=== PATIENT | male | born 1980 | race Caucasian/White ===

== ENCOUNTER → 2020-04-29 14:53 | Outpatient (BNVA) | payer OTHER, SELFPAY | PROVIDERS: Family Provider Urology; PCP Urology; Visit Provider Family Medicine | DX: Z11.59 Encounter for screening for other viral diseases (principal) | CPT/HCPCS: 87635 ==

== ENCOUNTER 2020-12-01 14:46 | Outpatient (CLI) | payer OTHER, SELFPAY ==
--- NOTE | 2020-12-01 14:55 | US_ITS ---
WS: [id number] ULTRASOUND SOFT TISSUES RIGHT lower extremity. HISTORY: MASS ON R LOWER LEG COMPARISON: None available. TECHNIQUE: 2-D and color Doppler imaging is submitted. Ultrasound is directed to the area on the RIGHT lower extremity. There is a lobulated soft tissue mas s which is similar echogenicity as the adjacent muscle. Nodule measures 1.5 x 0.6 cm. There is no inc reased vascularity. This does not appear to be a thrombosed vein. This could be herniation of muscle through a defect in the fascia. Very nonspecific by ultrasound. US/US soft tissue/extremity [id number] IMPRESSION: Nonspecific superficial soft tissue nodule in the RIGHT lower extremity. This i s not a thrombosed vein. Potentially could be herniated muscle through a fascia l defect. For further evaluation consider MRI.
== END 2020-12-01 14:47 | disposition home or self-care (01) ==
LOC: RAD 14:52
PROVIDERS: PCP Family Medicine; Visit Provider Family Medicine
DX: R22.41 Localized swelling, mass and lump, right lower limb (principal); E04.1 Nontoxic single thyroid nodule
CPT/HCPCS: 76882

== ENCOUNTER 2021-01-11 10:47 | Outpatient (CLI) | payer OTHER, SELFPAY ==
--- NOTE | 2021-01-11 10:58 | MR_ITS ---
WS: [id number] INDICATION: Leg mass TECHNIQUE: MRI of the right lower leg without and with gadolinium enhancement. Coronal STIR, coronal T1, sagittal STIR, sagittal T1, axial T2, axial PD, and post gadolinium imaging was obtained with fat saturated technique. COMPARISON: Ultrasound December 01, 2020 FINDINGS: Comparison recent ultrasound. Normal bone marrow signal in the right tibia and fibula. No a cute fractures. No abnormal gadolinium enhancement. No evidence of drainable abscess or fluid collect ion. No evidence of osteomyelitis. Area of palpable concern with marker in the posterior lateral calf. Tiny amount of serpiginous T2 sig nal deep to the palpable marker with gadolinium enhancement most likely represents a soft tissue benny ngioma with small feeding vessels. This corresponds to the soft tissue lesion seen on the ultrasound. This area measures 1.5 cm. No other suspicious underlying subcutaneous or intramuscular abnormalitie s. No other significant findings. MR/MR lower leg RT wo/w con [id number] IMPRESSION: 1. In the area of palpable concern, there is a small serpiginous T2 hyperinten se lesion likely soft tissue hemangioma measure 1.5 cm. This has a nonaggressiv e appearance. 2. No drainable abscess or fluid collection. 3. No other abnormalities.
[2021-01-11] MEDS: gadobenate dimeglumine 20 mL vial IV (12:00)
== END 2021-01-11 10:48 | disposition home or self-care (01) ==
LOC: RADWPI 10:50
PROVIDERS: PCP Family Medicine; Visit Provider Family Medicine
DX: R22.41 Localized swelling, mass and lump, right lower limb (principal)
CPT/HCPCS: 73720; A9577

== ENCOUNTER 2021-02-01 08:29 | Emergency (ER) | payer OTHER, SELFPAY ==
--- NOTE | 2021-02-01 | CTR_ITS ---
[facility] Final Radiology Report Call: [phone] assistance Online chat: [email or web address] Name: WILLIE LONGO Age: 40Years M Date: 02/01/2021 SSN: -- : [id number] Study: CT ABDOMEN/PELVIS W Requesting Physician: Gloria Mitchell Images: 230 Add?l Studies: Provided Clinical History: Procedure Accession CTDI Vol (mGy) DLP (mGy-cm) CT ABDOMEN/PELVIS W [id number] 1207.83 PROCEDURE INFORMATION: Exam: CT Abdomen And Pelvis With Contrast Exam date and time: 02/01/2021 1:39 PM Age: 40 years old Clinical indication: Abdominal pain; Patient HX: Constipation x 1 week TECHNIQUE: Imaging protocol: Computed tomography of the abdomen and pelvis with contrast. Radiation optimization: All CT scans at this facility use at least one of these dose optimization techniques: automated exposure control; mA and/or kV adjustment per patient size (includes targeted exams where dose is matched to clinical indication); or iterative reconstruction. Contrast material: OMNI 300; Contrast volume: 95 ml; Contrast route: INTRAVENOUS (IV); COMPARISON: US soft tissue/extremity [id number] 12/01/2020 3:14 PM RADIATION DOSE METRICS: Total DLP (mGy-cm): 1207.83 FINDINGS: Liver: No mass. Gallbladder and bile ducts: Unremarkable. No ductal dilation. Pancreas: Normal. No ductal dilation. Spleen: Normal. No splenomegaly. Adrenal glands: Normal. No mass. Kidneys and ureters: Normal. No hydronephrosis. Stomach and bowel: No acute findings. No obstruction. No mucosal thickening. Moderate fecal material throughout the colon. Appendix: No evidence of appendicitis. Intraperitoneal space: Unremarkable. No free air. No significant fluid collection. Vasculature: No abdominal aortic aneurysm. Lymph nodes: No significant adenopathy. Urinary bladder: Unremarkable as visualized. Reproductive: Unremarkable as visualized. Bones/joints: No acute findings. Soft tissues: Unremarkable. IMPRESSION: No acute findings. Findings consistent with constipation. Thank you for allowing us to participate in the care of your patient. Dictated and Authenticated by: Jarrell Montez MD 02/01/2021 2:42 PM Central Time ([place] & [place]) [facility]
[2021-02-01 09:04] VITALS: BP 114/80; PULSE 82; RESP 16; TEMP 36.6; O2SAT 96; BMI 27.1
--- NOTE | 2021-02-01 12:08 | PC.NURSE ---
Patient arrived to room at 12:08 and assumed care at that time.
[2021-02-01 12:09] VITALS: BP 128/99; PULSE 65; RESP 18; TEMP 36.6; O2SAT 99
--- NOTE | 2021-02-01 12:26 | W.ED.GENADLT ---
HPI - General Adult General: Chief complaint: General Medical Stated complaint: Bowel problems Time Seen by Provider: 02/01/21 11:11 Source: patient Mode of arrival: ambulatory Limitations: no limitations History of Present Illness: HPI narrative: 40-year-old male patient presents to the emergency department with constipation over the last 7 days. Patient states he has taken qlvh-hol-wkhqiup medicines without relief. Patient patient states he called his primary care physician and they sent him over here for possible bowel obstruction. Patient does complain of some nausea. Patient denies any fever. Patient denies any back pain. Patient states he is otherwise healthy. Associated symptoms: Reports nausea; Deny chest pain, confusion, diaphoresis, dyspnea, headache(s), malaise, rash, palpitations, syncope or vomiting Review of Systems Const: Denies: fever(s), chills, body aches, change in appetite, change in weight, fatigue, malaise or diaphoresis Eyes: Denies: change in vision, blurry vision, blind spots, photophobia, eye discomfort, eye discharge, eye redness, floaters or seeing flashes ENMT: Denies: throat pain, uvular edema, enlarged tonsils, odynophagia, hoarseness, mouth pain, swelling of lips/tongue, oral sores, bleeding gums, dental pain, dry mouth, ear or mastoid pain, ear discharge, change in hearing, tinnitus, disequilibrium, nasal discharge, nasal congestion, post nasal drip or sinus pain Card: Denies: chest pain, palpitations, irregular heart rhythm, edema, swelling of feet/ankles, lightheadedness, syncope, pre-syncope, dyspnea on exertion, orthopnea, leg pain with exertion or acrocyanosis Resp: Denies: dyspnea, productive cough, non-productive cough, wheezing, stridor, pain on inspiration, change in phlegm color, hemoptysis or chest congestion GI: Reports: abdominal pain, nausea and constipation; Denies: vomiting, hematemesis, dysphagia, diarrhea, GI cramping, change in bowel habits or rectal pain : Denies: flank pain, dysuria, urinary frequency, urinary urgency, urinary hesitancy or hematuria Musc: Denies: neck pain, back pain, extremity pain, extremity swelling, joint pain, joint swelling, joint redness, joint warmth or deformity Skin/Breast: Denies: rash, pruritus, erythema, sores, new lesions, changes in skin color or dry skin Neuro: Denies: headache(s), numbness in extremities, weakness in extremities, sensory changes, lack of coordination, difficulty walking, frequent falls, dizziness, vertigo, confusion, behavioral changes, Slurred speech present, difficulty communicating thoughts or seizure-like activity Psych: Denies: anxiety, depression, suicidal ideation or homicidal ideation Endo: Denies: polyuria, polydipsia, tired all the time, cold intolerance, excessive sweating, flushing, hot flashes or heat intolerance Alessandro/Lymph: Denies: easy bruising, easy bleeding, petechiae, purpura, enlarged lymph nodes or tender lymph nodes All/Imm: Denies: urticaria, throat swelling, tongue swelling, facial swelling, acute wheezing or itchy eyes PFSH ED PFSH: Social History Smoking and tobacco status: never smoked Physical Exam Const: COMMON NORMALS: no acute distress, average body habitus, patient oriented x3, no limitations, healthy appearing, alert and well nourished HENMT: THROAT: no uvular edema Resp: COMMON NORMALS: normal respiratory effort, No retractions, No use of accessory muscles, clear to auscultation bilaterally and percussion normal AUSCULTATION: clear to auscultation bilaterally PERCUSSION: percussion normal Cardio: COMMON NORMALS: regular rate and regular rhythm RATE: regular rate RHYTHM: regular rhythm GI: COMMON NORMALS: Normal to inspection, nondistended, normoactive bowel sounds present and Soft to palpation PALPATION: Yes Soft to palpation and Yes Tenderness to palpation present (GI) Details: LLQ, RLQ, LUQ and RUQ : COMMON NORMALS: Yes no CVA tenderness and Yes normal external exam BLADDER/KIDNEY EXAM: Yes no CVA tenderness Back/Pelvis: COMMON NORMALS: no CVA tenderness Neuro: COMMON NORMALS: patient oriented x3 SENSORIUM/ORIENTATION: Yes alert Psych: COMMON NORMALS: mental status grossly normal, Normal thought process present, cooperative, normal affect, speech normal, activity/motor behavior normal, denies hallucinations, denies homicidal ideation and denies suicidal ideation SPEECH: Yes normal speech THOUGHT PROCESS: Normal thought process present Skin: COMMON NORMALS: no rashes or lesions noted, no wounds, turgor normal, no jaundice, no petechiae and no mottling GENERAL SKIN EXAM: no rashes or lesions noted and turgor normal Course Vital Signs: Vital signs: Vital Signs Temperature 97.9 F 02/01/21 12:09 Pulse Rate 62 02/01/21 13:16 Respiratory Rate 18 02/01/21 13:16 Blood Pressure 116/80 02/01/21 13:16 Pulse Oximetry 99 02/01/21 12:09 MDM - General Adult MDM Narrative: Medical decision making narrative: Patient is well-appearing nontoxic and in no acute distress.40-year-old male patient presents to the emergency department with constipation over the last 7 days. Patient states he has taken auih-yfb-nxgzjed medicines without relief. Patient patient states he called his primary care physician and they sent him over here for possible bowel obstruction. Patient does complain of some nausea. Patient denies any fever. Patient denies any back pain. Patient states he is otherwise healthy. Patient's labs are unremarkable. Patient CT findings are consistent with constipation. I will advised patient to try magnesium citrate gvyw-qsh-cpmxtvy and to follow-up with his primary care physician return precautions have been advised home care instructions have been reviewed patient is medically cleared and appropriate for discharge Lab Data: Labs: Lab Results 02/01/21 02/01/21 Range/Units 12:54 12:54 WBC 8.7 (4.0-10.0) 10^3/ uL RBC 5.81 H (4.1-5.3) 10^6/u L Hgb 17.7 H (11.7-16.6) g/dL Hct 52.2 H (42.0-52.0) % MCV 89.8 (80-94) fL MCH 30.5 (28.0-34.0) pg MCHC 33.9 (30.0-36.0) g/dL RDW 11.7 L (12.1-15.1) % Plt Count 268 (130-400) 10^3/c mm MPV 10.8 H (7.4-10.4) fL Neut % (Auto) 62.8 % Lymph % (Auto) 26.7 % Bremer % (Auto) 7.9 % Eos % (Auto) 1.7 % Baso % (Auto) 0.8 % Neut # (Auto) 5.45 (1.8-7.7) 10^3/u L Lymph # (Auto) 2.3 (0.8-4.8) 10^3/u L Bremer # (Auto) 0.7 (0.2-0.9) 10^3/u L Eos # (Auto) 0.2 (0.0-0.8) 10^3/u L Baso # (Auto) 0.1 (0.0-0.1) 10^3/u L Nucleated RBC % (a uto) 0 % Nucleated RBCs # 0.0 /100WBC Sodium 138 (136-145) mmol/L Potassium 4.3 (3.5-5.1) mmol/L Chloride 98 (98-107) mmol/L Carbon Dioxide 27 (22-29) mmol/L Anion Gap 17.3 (5-19) BUN 17 (6-20) mg/dL Creatinine 1.2 (0.7-1.2) mg/dL GFR Calculation 66.4 L (90-130) mL/min Glucose 78 (65-115) mg/dL Calculated Osmolal ity 286 (285-295) mOsm/k g Calcium 9.7 (8.5-10.5) mg/dL Total Bilirubin 0.7 (0.15-1.2) mg/dL AST 18 (0-40) U/L ALT 35 (0-41) U/L Alkaline Phosphata se 72 (40-130) IU/L Total Protein 7.9 (6.6-8.7) g/dL Albumin 5.2 (3.5-5.2) g/dL Globulin 2.7 (1.3-4.6) g/dL Discharge Plan Discharge Patient Disposition: Home Clinical Impression: Constipation Qualifiers: Constipation type: unspecified constipation type Qualified Code(s): K59.00 - Constipation, unspecified Condition: Stable Prescriptions: No Action citalopram [Celexa] 20 mg tablet 20 mg PO DAILY RF: 0 temazepam 7.5 mg capsule 7.5 mg PO PRN PRN (Reason: sleep) RF: 0 Discharge Orders: Discharge ED (Routine); Ordered 02/01/21 Ordered By: Gloria Mitchell Referrals: Lamine Hansen MD [Primary Care Provider] - Discharge Diet: Advance as tolerated Discharge Activity: Resume usual activity Patient Instructions: Constipation (ED), Opioid Safety Activity Restrictions/Additional Instructions: Please take Magnesium Citrate as directed per label Please drink lots of water Please return to the ER if You have blood in your bowel movements. You have a fever and abdominal pain with the constipation. Coding Level of Care Code ED It Training Specialist for Yanna Gonzales
[2021-02-01 13:00] LABS: Basophils # 0.1 10^3/uL (0.0-0.1); Basophils % 0.8 %; Eosinophils # 0.2 10^3/uL (0.0-0.8); Eosinophils % 1.7 %; Hematocrit 52.2 % (42.0-52.0); Hemoglobin 17.7 g/dL (11.7-16.6); Lymphocytes # 2.3 10^3/uL (0.8-4.8); Lymphocytes % 26.7 %; Mean Corpuscular HGB Conc 33.9 g/dL (30.0-36.0); Mean Corpuscular Hemoglobin 30.5 pg (28.0-34.0); Mean Corpuscular Volume 89.8 fL (80-94); Mean Platelet Volume 10.8 fL (7.4-10.4); Monocytes # 0.7 10^3/uL (0.2-0.9); Monocytes % 7.9 %; Neutrophils # 5.45 10^3/uL (1.8-7.7); Neutrophils % 62.8 %; Nucleated Red Blood Cells % 0 %; Platelet Count 268 10^3/cmm (130-400); Red Blood Count 5.81 10^6/uL (4.1-5.3); Red Cell Distribution Width 11.7 % (12.1-15.1); White Blood Count 8.7 10^3/uL (4.0-10.0)
[2021-02-01 13:16] VITALS: BP 116/80; PULSE 62; RESP 18
[2021-02-01 13:22] LABS: Alanine Aminotransferase 35 U/L (0-41); Albumin Level 5.2 g/dL (3.5-5.2); Alkaline Phosphatase 72 IU/L (40-130); Anion Gap 17.3 (5-19); Aspartate Amino Transferase 18 U/L (0-40); Blood Urea Nitrogen 17 mg/dL (6-20); Calcium 9.7 mg/dL (8.5-10.5); Carbon Dioxide 27 mmol/L (22-29); Chloride 98 mmol/L (98-107); Globulin 2.7 g/dL (1.3-4.6); Glomerular Filtration Rate 66.4 mL/min (90-130); Glucose 78 mg/dL (65-115); Osmolality Calculated 286 mOsm/kg (285-295); Potassium 4.3 mmol/L (3.5-5.1); Sodium 138 mmol/L (136-145); Total Bilirubin 0.7 mg/dL (0.15-1.2); Total Protein 7.9 g/dL (6.6-8.7)
[2021-02-01] MEDS: iohexol 300 mg/mL 100 mL Btl IV (13:50)
[2021-02-01 15:26] VITALS: BP 119/86; PULSE 73; RESP 16; O2SAT 97
== END 2021-02-01 15:20 | disposition home or self-care (01) ==
PROVIDERS: Emergency Provider Registered Nurse; PCP Family Medicine
DX: K59.00 Constipation, unspecified (principal)
CPT/HCPCS: 74177; 80053; 85025; 99283; Q9967

== ENCOUNTER 2021-08-02 15:33 | Outpatient (CLI) | payer OTHER, SELFPAY ==
--- NOTE | 2021-08-02 15:42 | XR_ITS ---
WS: [id number] XR foot RT 2V [id number] REASON FOR EXAM: RT. FOOT PAIN FINDINGS: No fracture or focal bone lesion. Joint spaces of the right forefoot, midfoot, and hindfoot are relatively well-preserved. On the lateral view there is a significant dorsally directed bony exostosis. This appears to originat e from the distal first metatarsal. No other significant abnormality is identified. XR/XR foot RT 2V [id number] IMPRESSION: No acute abnormality. Dorsal bony exostosis as above.
== END 2021-08-02 15:34 | disposition home or self-care (01) ==
LOC: RAD 15:37
PROVIDERS: PCP Family Medicine; Visit Provider Family Medicine
DX: M79.671 Pain in right foot (principal)
CPT/HCPCS: 73620

== ENCOUNTER 2022-02-25 05:47 | Day surgery (SDC) | payer OTHER, SELFPAY ==
[2022-02-24 13:17] VITALS: BMI 25.8
[2022-02-25] VITALS (8 sets, daily range): BP systolic 98–120; BP diastolic 63–85; PULSE 55–72; RESP 15–18; TEMP 36.2–36.4; O2SAT 94–99
--- NOTE | 2022-02-25 | SCC_ITS ---
Procedure done: Cheilectomy with bunionectomy right foot. CPT code 42082 1 second of fluoroscopic guidance, for a cumulative dose of 0.02 mGy, was provided to Dr. Benson by the radiology department. C-arm images of the RIGHT foot were saved for the patient's permanent record. [facility]
--- NOTE | 2022-02-25 06:10 | ANES.PREANE2 ---
Pre-Anesthetic Assessment Height/Weight: Height 1.7 m Weight 74.843 kg Temp Pulse Resp BP Pulse Ox O2 Del Method 97.6 F 72 18 120/85 99 02/25/22 06:01 02/25/22 06:01 02/25/22 06:01 02/25/22 06:01 02/25/22 06:01 02/25/22 06:07 Preop Diagnosis: Hallux rigidus, right foot Operation Date: 02/25/22 07:00 Proposed Procedures p Decompression osteotomy with cheilectomy right first metatarsal 86511,M20.21(Right) - Delonte Benson DPM s cheilectomy right first metatarsal(Right) - Delonte Benson DPM Familial anesthetic complications: None Was Beta [place] taken within 24 hours: N/A Was Clonidine taken within 24 hours: N/A Last intake: Intake Last Liquid Date 02/24/22 Last Liquid Time 22:00 Last Solid Date 02/24/22 Last Solid Time 18:30 Social No alcohol and No tobacco Exam alert, oriented x 3, clear to auscultation bilaterally and regular rate & rhythm Airway Submandibular: within normal limits Cervical ROM: within normal limits Mallampati: Class I Dentition: full History/ROS No significant complaints Pulmonary None reported CV/HEM None reported None reported Hepatic None reported GI None reported Metabolic None reported Musc/skel Bunion Neuropsych None reported Anesthetic Plan ASA status: 1 Anesthesia: Anesthesia Evaluation, General and MAC Other: I discussed with the patient risks, goals, and benefits of MAC and general anesthesia. We discussed spectrum of MAC anesthesia including conversion to general as well as possibility of recall of intraoperative stimuli including discomfort/pain. Patient agrees to proceed with MAC. Risk of > 500 ml blood loss (7ml/kg in children): No Medications/Allergies Home Medications Medication Instructions Recorded Confirmed Last Taken Type citalopram 20 mg tablet (Celexa) 20 mg PO DAILY 01/31/21 02/25/22 02/24/22 History temazepam 7.5 mg capsule 7.5 mg PO PRN PRN sleep 01/31/21 02/25/22 02/24/22 History meloxicam 15 mg tablet 15 mg PO DAILY 30 days #30 tabs 10/04/21 02/24/22 Unknown Rx Allergies Allergy/AdvReac Type Severity Reaction Status Date / Time No Known Allergies Allergy Verified 10/04/21 08:32 [facility] Anesthesia Social History Smoking and tobacco status: never smoked Data Anesthesia Cardiac Studies: No Data to Display
[2022-02-25] MEDS: sodium chloride 0.9% 1,000 ML 30 ML IV (06:16)
[2022-02-25] MEDS: gabapentin 300 mg Capsule PO (06:17)
[2022-02-25] MEDS: CELEcoxib 200 mg Capsule 400 MG PO (06:17)
--- NOTE | 2022-02-25 06:38 | W.PM.OPSUD ---
Surgery/Procedure H&P Update DATE OF PROCEDURE: February 25, 2022 DATE H&P PERFORMED: 02/25/22 CHANGES TO PREVIOUS DOCUMENTATION: Done PREOP DIAGNOSIS: Hallux rigidus, right foot PLANNED PROCEDURE: Operation Date: 02/25/22 07:00 Proposed Procedures p Decompression osteotomy with cheilectomy right first metatarsal 60742,M20.21(Right) - Delonte Benson DPM s cheilectomy right first metatarsal(Right) - Delonte Benson DPM
--- NOTE | 2022-02-25 06:40 | PM.OPSURHP ---
Providers/Chief Complaint Primary Care Provider: Lamine Hansen MD History of Present Illness ?41 year old male patient here today for evaluation of his right foot pain. This has been ongoing for approx 7 months. He denies any injury. He locates it to the right big toe. Over the past few months the pain has gotten progressively worse with exertion. He states that if he is not on his feet he does not have pain but he would like to be able to be active without pain. Review of Systems General: Reports: 10 or more systems reviewed and unremarkable except in HPI and below Const: Denies: fever(s) or chills Eyes: Denies: change in vision Card: Denies: chest pain or palpitations Resp: Denies: dyspnea or productive cough GI: Denies: abdominal pain, nausea or vomiting : Denies: flank pain Musc: Reports: extremity pain, joint pain, joint stiffness, limited range of motion and deformity Skin/Breast: Reports: skin tenderness; Denies: rash Neuro: Reports: difficulty walking; Denies: numbness in extremities, sensory changes or frequent falls Psych: Denies: suicidal ideation Alessandro/Lymph: Denies: easy bruising Medications/Allergies Home Medications Medication Instructions Recorded Confirmed Last Taken Type citalopram 20 mg tablet (Celexa) 20 mg PO DAILY 01/31/21 02/25/22 02/24/22 History temazepam 7.5 mg capsule 7.5 mg PO PRN PRN sleep 01/31/21 02/25/22 02/24/22 History meloxicam 15 mg tablet 15 mg PO DAILY 30 days #30 tabs 10/04/21 02/24/22 Unknown Rx Allergies Allergy/AdvReac Type Severity Reaction Status Date / Time No Known Allergies Allergy Verified 10/04/21 08:32 PFSH PFSH: Social History Smoking and tobacco status: never smoked Vital Signs Vitals Signs: Last Vital Signs Temp 97.6 F 02/25/22 06:01 Pulse 72 02/25/22 06:01 Resp 18 02/25/22 06:01 BP 120/85 02/25/22 06:01 Pulse Ox 99 02/25/22 06:01 O2 Del Method 02/25/22 06:07 Weight: Weight last 48 hrs Weight 165 lb Physical Exam Narrative: EXAM NARRATIVE: GENERAL: Patient is alert and oriented ?3 and in no acute distress.? The following is a focused bilateral lower extremity exam. VASCULAR: Dorsalis pedis and posterior tibial arteries palpable +2.? Capillary refill time less than 3 seconds to the distal hallux bilaterally. Calf is supple and nontender proximally and distally.? No pedal edema appreciated.? Pedal hair growth present. NEUROLOGICAL: Epicritic and protopathic sensations grossly intact to the lower extremities.? +2 Achilles tendon reflex noted bilaterally.? Negative Tinel sign upon percussion of lower extremity nerves. DERMATOLOGICAL: Lower extremity skin is well-hydrated, normal texture and turgor.? There are no open sores or lesions noted to the lower extremities.? No erythema or ecchymosis present to the bilateral legs and feet. MUSCULOSKELETAL: Pain to palpation at the right first metatarsophalangeal joint with osseous prominence dorsally.? Osseous and range of motion with mild crepitus to the right first metatarsophalangeal joint.? Right first metatarsophalangeal joint dorsiflexion approximately 35 to 40 degrees.? No palpable mass along the course of the plantar fascia appreciated.? No pain to palpation along the course of the bilateral Achilles tendon.? No pain to palpation along the course posterior tibial tendon or peroneal tendons.? No pain with [id number]-gb-uwkd compression of calcaneus, bilaterally.? Muscle strength is 5/5 in all 3 cardinal planes pain-free without guarding to the foot and ankle, bilaterally. CARDIOVASCULAR: S1, S2, normal rate, normal rhythm. Dorsalis pedis and posterior tibial arteries palpable. LUNGS: Clear to auscltation, no use of acessory muscles, no crackles or wheezes. A&P Assessment and plan (1) Bunion, right: Status: Acute (2) Hallux rigidus, right foot: Status: Acute Plan 41-year-old male hallux rigidus right great toe. On x-ray on file he has slightly elongated first metatarsal leading to altered mechanics and premature wear of the first metatarsophalangeal joint.? The lateral compartment of the right first metatarsophalangeal joint has joint space narrowing, subchondral sclerosis and osteophytes appreciated on the lateral view. Discussed conservative treatment measures consisting of stretching, orthoses that are prefabricated, supportive shoes and anti-inflammatories.? These of things that he has already been trying with minimal improvement.? His pain has been progressive.? At this point we discussed surgical options my recommendation was a decompression osteotomy of the right first metatarsal and cheilectomy with possible implant.? Risks include but are not limited to pain, bleeding, numbness, infection, hardware failure, delayed union, malunion, nonunion, need for further surgical intervention, DVT, heart attack, stroke and . Also risk for altered mechanics, avascular necrosis of the first metatarsal head, paresthesias and chronic swelling. Planning on decompression osteotomy with cheilectomy will be modified artemio. lalita BENNETT, 60 minutes, supine Coding Level of Care Code Acute Splicing Machine Operator Automatic for [facility] Fwd Diagnoses Bunion, right M21.611 Hallux rigidus, right foot M20.21
--- NOTE | 2022-02-25 06:51 | XR_ITS ---
WS: [id number] Right foot, 3 views, 02/25/2022 Clinical Data: Postop right foot decompression osteotomy with cheilectomy Comparison: Right foot, 08/02/2021. Findings: There is an osteotomy of the distal right first metatarsal. There is an orthopedic screw across the o steotomy site. There is air in the osteotomy site from recent surgery. There is soft tissue swelling over the dorsum of the foot. XR/XR foot RT min 3V* [id number] Impression: Osteotomy of distal right first metatarsal.
[2022-02-25] MEDS: ceFAZolin 2,000 MG in sodium chloride 0.9% (plus) 50 ML 100 MG IV (07:00)
--- NOTE | 2022-02-25 08:03 | SUR.PHASEI ---
patient brought into pacu with oral airway in place and simple mask with o2 at 8L and sats at 95%. oral airway removed once into pacu. patient has dressings to right foot intact and dry. toes to right foot warm and pink. patient wakes but is very drowsy still.
--- NOTE | 2022-02-25 08:08 | P.OP_ITS ---
Operative Report Date of procedure: February 25, 2022 Pre-op diagnosis: Bunion and hallux rigidus right foot Post-op diagnosis: Bunion and hallux rigidus right foot Post-op findings: Osteochondral defect from 9:00 to 12 o'clock position of the right first metatarsal phalangeal joint with dorsal bossing at the first metatarsal phalangeal joint, right foot. Procedure done: Cheilectomy with bunionectomy right foot. CPT code 85198 Implants: [place] 28 3 mm screw by 20 mm, 3-0 Vicryl, 4-0 Vicryl, 4-0 nylon, 10 cc of Exparel Specimens removed/disposition: None Pathology: None Surgeon: Delonte Benson D.P.M. Ad Operations Intern: Alisha Estimated blood loss: 5 34 IV fluids: 0 Urine output: 0 Complications: None Findings: Arthrosis of the right first metatarsal phalange joint with dorsal bossing, loose chondral bodies and osteochondral defect at the fourth quadrant Brief History: On x-ray on file he has slightly elongated first metatarsal leading to altered mechanics and premature wear of the first metatarsophalangeal joint.? The lateral compartment of the right first metatarsophalangeal joint has joint space narrowing, subchondral sclerosis and osteophytes appreciated on the lateral view. Discussed conservative treatment measures consisting of stretching, orthoses that are prefabricated, supportive shoes and anti-inflammatories.? These of things that he has already been trying with minimal improvement.? His pain has been progressive.? At this point we discussed surgical options my recommendation was a decompression osteotomy of the right first metatarsal and cheilectomy with possible implant.? Risks include but are not limited to pain, bleeding, numbness, infection, hardware failure, delayed union, malunion, nonunion, need for further surgical intervention, DVT, heart attack, stroke and .? Also risk for altered mechanics, avascular necrosis of the first metatarsal head, paresthesias and chronic swelling. Procedure: Under mild sedation the patient was brought to the operating room and remained on the gurney in supine position. A timeout was performed. Anesthesia was then administered by the anesthesia service. Local anesthesia injected by myself consisting of 30 cc of 0.25% Marcaine plain in a right Velarde block fashion. Well-padded pneumatic tourniquet applied to the right ankle. Right lower extremity was then scrubbed, prepped and draped utilizing normal aseptic technique. Right foot was exanguinated with an Esmarch bandage and the tourniquet inflated to 250 mmHg. Attention was directed to the dorsal medial aspect of the right first metatarsal phalangeal joint where a linear longitudinal incision was made medial and parallel to the extensor houses longus tendon. Dissection was carried down through skin and subcutaneous tissue to the layer of periosteum utilizing a combination of blunt and sharp technique. Care was taken to retract and preserve neurovascular and tendinous structures. All bleeders were ligated and cauterized as necessary. Capsulotomy was performed in a linear fashion and the head of the first metatarsal and base of the proximal phalanx were freed from their soft tissue attachments and capsular attachments. Significant dorsal bossing with osteophyte at the first metatarsal head most prominent laterally was transected utilizing an oscillating sagittal saw followed by the resection of medial eminence. All rough edges were smoothed. Decompression osteotomy in a chevron fashion this was a modified Robin was performed at the head of the right first metatarsal with apex pointed distally. First metatarsal head was translated laterally and fixated utilizing standard AO technique utilizing [place] 28's 3 mm 20 mm in length screw which was headed with excellent bony apposition and compression noted. Medial shelf was transected and all rough edges were smoothed. Further remodeling at the base of the proximal phalanx to its natural contour and small amount of dorsal bossing/osteophyte was removed with a rongeur and's smoothed with rasp. Small osteochondral loose body within the capsule dorsally excised and passed in operative field. The incision was then flushed with copious months of sterile skin solution. Intraoperative fluoroscopy with an AP, oblique and lateral view showed the first metatarsal head in a more anatomically correct position and the screw was not violating the first metatarsal phalangeal joint this was confirmed with fluoroscopy in all 3 views as well as direct visualization within the first metatarsal phalangeal joint. The incision was once again flushed with saline and closed in a layered fashion with capsule reapproximated utilizing 3-0 Vicryl. Subcutaneous tissue with 4-0 Vicryl and skin with 4-0 nylon. 10 cc of Exparel infiltrated in a grid like fashion per web site specialist recommendations. Incision was then dressed with Adaptic, sterile 4 x 4, Kerlix and Kyle wrap. Smooth range of motion at the right first metatarsophalangeal joint able to obtain 55 degrees of dorsiflexion intraoperatively. Tourniquet was deflated and a prompt hyperemic response is noted to the distal digits of the right foot. Patient tolerated the procedure and anesthesia well and was transferred to the PACU with vital signs stable and vascular status intact. Following a period of postoperative monitoring he will be discharged home with a cam boot may be weightbearing as tolerated to elevate his right foot while resting. Prescribed hydrocodone 10/325 mg to be taken every 6 hours as needed for pain and to utilize this judiciously. Will follow- up Monday next week first for surgical dressing change. Was provided my cell phone number to contact with any postoperative questions or concerns.
--- NOTE | 2022-02-25 08:28 | SUR.PHASEI ---
0820: report given to Arianne. xray at bedside. plan to transfer pt back to ops when xray done. patient awake and alert, talking. states no pain. dressing toright foot remains intact and dry. room air sat 95%.
[2022-02-25] MEDS: HYDROcodone-acetaminophen 10-325 mg Tablet 1 TAB PO (08:51)
--- NOTE | 2022-02-25 11:59 | ANE.PACU2 ---
Inpatient post-anesthesia follow up: Airway intact: Yes Vital signs: Temperature 97.5 F Pulse Rate 55 Respiratory Rate 18 Blood Pressure 104/78 Pulse Oximetry 98 Oxygen Delivery Me thod Room Air Oxygen Flow Rate 8 Fraction of Inspir ed Oxygen Hydration adequate: Yes Nausea and vomiting: No Pain level: 1 Mental status: Baseline
== END 2022-02-25 08:58 | disposition home or self-care (01) ==
PROVIDERS: PCP Family Medicine; Visit Provider Podiatrist Foot & Ankle Surgery
PROC: (CPT 28310; principal; 2022-02-25 07:00)
PROC: (CPT 28289; 2022-02-25 07:00)
DX: M21.611 Bunion of right foot (principal); M20.21 Hallux rigidus, right foot
CPT/HCPCS: 28296; 73630; 76000; C1713; C9290; J0330; J2250; J2405; J2704; J3010; J3490; J7030

== ENCOUNTER → 2022-03-10 15:31 | Outpatient (BNVA) | payer OTHER, SELFPAY | PROVIDERS: PCP Family Medicine; Visit Provider Podiatrist Foot & Ankle Surgery | DX: M21.611 Bunion of right foot (principal); M79.89 Other specified soft tissue disorders | CPT/HCPCS: 73630 ==

== ENCOUNTER → 2022-03-23 15:56 | Outpatient (BNVA) | payer OTHER, SELFPAY | PROVIDERS: PCP Family Medicine; Visit Provider Podiatrist Foot & Ankle Surgery | DX: Z98.890 Other specified postprocedural states (principal); M20.21 Hallux rigidus, right foot | CPT/HCPCS: 73630 ==

== ENCOUNTER → 2022-04-07 13:20 | Outpatient (BNVA) | payer OTHER, SELFPAY | PROVIDERS: PCP Family Medicine; Visit Provider Podiatrist Foot & Ankle Surgery | DX: Z98.890 Other specified postprocedural states (principal); M20.21 Hallux rigidus, right foot | CPT/HCPCS: 73630 ==

== ENCOUNTER 2022-12-29 06:00 | Outpatient (CLI) | payer OTHER, SELFPAY ==
--- NOTE | 2022-12-29 06:15 | US_ITS ---
WS: [id number] ULTRASOUND ABDOMEN LIMITED CLINICAL INFORMATION: abd pain COMPARISON: None. FINDINGS: Liver Size: Normal. Craniocaudal length: 13.7 cm. Echogenicity: Coarse Surface nodularity: None. Mass (size and location): None. Bile ducts Intrahepatic ducts: Normal. Common bile duct diameter: 0.3 cm. Gallbladder Normal. Gallstones: None. Gallbladder sludge: None. Gallbladder wall thickening: None. Pericholecystic fluid: None. Sonographic Chau sign: Absent. Pancreas Normal as visualized. Right kidney: Normal. Hydronephrosis: None. Size: 9.6 cm x 4.5 cm x 4.2 cm. Abdominal aorta and IVC Visualized portions are normal. Ascites: None. US/US gall bladder 93642 IMPRESSION: 1. Normal liver size. Mild diffuse fatty infiltration liver. 2. No hydronephrosis in RIGHT kidney. 3. Normal common bile duct. 4. Normal gallbladder. No cholelithiasis.
== END 2022-12-29 06:01 | disposition home or self-care (01) ==
LOC: RAD 06:01
PROVIDERS: PCP Family Medicine; Visit Provider Family Medicine
DX: R10.9 Unspecified abdominal pain (principal); K76.0 Fatty (change of) liver, not elsewhere classified
CPT/HCPCS: 76705

== ENCOUNTER → 2023-01-11 09:23 | Outpatient (BNVA) | payer OTHER, SELFPAY | PROVIDERS: PCP Family Medicine; Visit Provider Nurse Practitioner Family | DX: R11.2 Nausea with vomiting, unspecified (principal); R63.4 Abnormal weight loss; R10.9 Unspecified abdominal pain; Z13.220 Encounter for screening for lipoid disorders; K29.70 Gastritis, unspecified, without bleeding; R10.13 Epigastric pain; K21.9 Gastro-esophageal reflux disease without esophagitis | CPT/HCPCS: 80053; 80061; 82150; 83690 ==

== ENCOUNTER → 2023-01-12 13:12 | Outpatient (BNVA) | payer OTHER, SELFPAY | PROVIDERS: PCP Family Medicine; Visit Provider Nurse Practitioner Family | DX: R11.2 Nausea with vomiting, unspecified (principal); R63.4 Abnormal weight loss; R10.9 Unspecified abdominal pain; Z13.220 Encounter for screening for lipoid disorders; K29.70 Gastritis, unspecified, without bleeding; R10.13 Epigastric pain; K21.9 Gastro-esophageal reflux disease without esophagitis; N40.0 Benign prostatic hyperplasia without lower urinary tract symptoms; K63.89 Other specified diseases of intestine; R93.5 Abnormal findings on diagnostic imaging of other abdominal regions, including retroperitoneum | CPT/HCPCS: G0103 ==

== ENCOUNTER → 2023-01-25 12:58 | Outpatient (BNVA) | payer OTHER, SELFPAY | PROVIDERS: PCP Family Medicine; Visit Provider Family Medicine | DX: R93.5 Abnormal findings on diagnostic imaging of other abdominal regions, including retroperitoneum (principal); R10.13 Epigastric pain; R11.2 Nausea with vomiting, unspecified; R10.9 Unspecified abdominal pain; R63.4 Abnormal weight loss | CPT/HCPCS: 80053; 82784; 83516; 84439; 84443; 85025; 85651; 86003; 86008; 86140; 86618; 86666; 86757 ==

== ENCOUNTER 2023-04-19 07:25 | Day surgery (SDC) | payer OTHER, SELFPAY ==
[2023-04-17 14:59] VITALS: BMI 26.6
[2023-04-19 07:38] VITALS: BP 100/85; PULSE 88; RESP 18; TEMP 36.3; O2SAT 97
[2023-04-19 07:40] VITALS: BMI 26.6
[2023-04-19] MEDS: sodium chloride 0.9% 1,000 ML 30 ML IV (07:52)
--- NOTE | 2023-04-19 07:57 | ANES.PREANE2 ---
Pre-Anesthetic Assessment Height/Weight: Height 1.65 m Weight 72.575 kg Temp Pulse Resp BP Pulse Ox O2 Del Method 97.3 F L 88 18 100/85 97 Room Air 04/19/23 07:38 04/19/23 07:38 04/19/23 07:38 04/19/23 07:38 04/19/23 07:38 04/19/23 07:38 Preop Diagnosis: screening, epigastric pain Operation Date: 04/19/23 08:30 Proposed Procedures p [address] [address]GD. [address]56 Colonoscopy R10.13,R11.2 ,Z12.11(Not Applicable) - Gianluca Nix DO s Colonoscopy(Not Applicable) - Gianluca Nix DO Familial anesthetic complications: none Was Beta [place] taken within 24 hours: N/A Was Clonidine taken within 24 hours: N/A Last intake: Intake Last Liquid Date 04/18/23 Last Liquid Time 22:00 Last Solid Date 04/17/23 Last Solid Time 18:00 Social Alcohol and No tobacco Exam alert, oriented x 3, clear to auscultation bilaterally and regular rate & rhythm Airway Submandibular: within normal limits Cervical ROM: within normal limits Mallampati: Class II Dentition: full History/ROS No significant history except as noted Pulmonary None reported CV/HEM None reported None reported Hepatic None reported GI Gastroesophageal Reflux Disease Metabolic None reported Musc/skel None reported Neuropsych Anxiety and Depression alpha gal. Anesthetic Plan ASA status: 1 Anesthesia: MAC Risk of > 500 ml blood loss (7ml/kg in children): No Medications/Allergies Home Medications Medication Instructions Recorded Confirmed Last Taken Type ondansetron HCl 4 mg tablet 4 mg PO Q6H PRN nausea and 01/11/23 04/19/23 04/18/23 Rx vomiting #90 tabs pantoprazole 40 mg tablet,delayed 40 mg PO DAILY 30 days #30 tabs 01/11/23 04/19/23 04/18/23 Rx release (Protonix) promethazine 25 mg tablet 25 mg PO TID PRN nausea and 01/25/23 04/19/23 04/16/23 Rx vomiting #60 tabs alprazolam 0.5 mg tablet 0.5 mg PO BID PRN anxiety #20 tabs 02/06/23 04/17/23 04/17/23 Rx temazepam 7.5 mg capsule 7.5 mg PO PRN PRN sleep #30 caps 02/20/23 04/17/23 Unknown Rx citalopram 40 mg tablet 40 mg PO DAILY 04/17/23 04/19/23 04/18/23 History Allergies Allergy/AdvReac Type Severity Reaction Status Date / Time No Known Allergies Allergy Verified 02/07/23 14:23 Current Medications Generic Name Dose Route Start Last Admin Trade Name Freq PRN Reason Stop Dose Admin Sodium Chloride 1,000 mls @ 30 mls/hr 04/19/23 07:30 04/19/23 07:52 Sodium Chloride 0.9% IV 04/20/23 07:29 30 mls/hr .Q24H KARSTEN Administration PFSH Anesthesia Social History Smoking and tobacco status: never smoked Second hand smoke exposure: No Smoking risk assessment/counseling performed?: No Alcohol intake: never Desire information about alcohol rehabilitation?: No Counseling given: No Data Anesthesia Cardiac Studies: No Data to Display
--- NOTE | 2023-04-19 08:10 | PM.HP ---
Providers/Chief Complaint Primary Care Provider: Chris Ventura DO Chief Complaint: Z12.11, R10.13, R11.2 History of Present Illness Declan Mcdonnell is a 43 year old male Review of Systems General: Reports: 10 or more systems reviewed and unremarkable except in HPI and below Medications/Allergies Home Medications Medication Instructions Recorded Confirmed Last Taken Type ondansetron HCl 4 mg tablet 4 mg PO Q6H PRN nausea and 01/11/23 04/19/23 04/18/23 Rx vomiting #90 tabs pantoprazole 40 mg tablet,delayed 40 mg PO DAILY 30 days #30 tabs 01/11/23 04/19/23 04/18/23 Rx release (Protonix) promethazine 25 mg tablet 25 mg PO TID PRN nausea and 01/25/23 04/19/23 04/16/23 Rx vomiting #60 tabs alprazolam 0.5 mg tablet 0.5 mg PO BID PRN anxiety #20 tabs 02/06/23 04/17/23 04/17/23 Rx temazepam 7.5 mg capsule 7.5 mg PO PRN PRN sleep #30 caps 02/20/23 04/17/23 Unknown Rx citalopram 40 mg tablet 40 mg PO DAILY 04/17/23 04/19/23 04/18/23 History Allergies Allergy/AdvReac Type Severity Reaction Status Date / Time No Known Allergies Allergy Verified 02/07/23 14:23 PFSH Acute PFSH: Social History Smoking and tobacco status: never smoked Second hand smoke exposure: No Smoking risk assessment/counseling performed?: No Alcohol intake: never Desire information about alcohol rehabilitation?: No Counseling given: No Vitals/I&O/Wt Last Vital Signs Temp 97.3 F L 04/19/23 07:38 Pulse 88 04/19/23 07:38 Resp 18 04/19/23 07:38 BP 100/85 04/19/23 07:38 Pulse Ox 97 04/19/23 07:38 O2 Del Method Room Air 04/19/23 07:38 Weight last 48 hrs Weight 160 lb Weight 160 lb A&P Assessment and plan (1) Allergy to alpha-gal: (2) Colon cancer screening: (3) GERD (gastroesophageal reflux disease): [facility] Home Coding Level of Care Code Acute Code for Chg Fwd Diagnoses Allergy to alpha-gal Z91.018 Colon cancer screening Z12.11 GERD (gastroesophageal reflux disease) K21.9
[2023-04-19 08:28] VITALS: BP 99/66; PULSE 63; RESP 16; TEMP 36.4; O2SAT 99
[2023-04-19 08:33] VITALS: BP 113/89; PULSE 82; RESP 18; O2SAT 99
--- NOTE | 2023-04-19 08:38 | ANE.PACU2 ---
Inpatient post-anesthesia follow up: Vital signs: Temperature 97.5 F Pulse Rate 63 Respiratory Rate 16 Blood Pressure 99/66 Pulse Oximetry 99 Oxygen Delivery Me thod Nasal Cannula Oxygen Flow Rate 3 Fraction of Inspir ed Oxygen Hydration adequate: Yes Nausea and vomiting: No Pain level: Other (0) Pain level: 0 Mental status: Baseline
[2023-04-19 08:43] VITALS: BP 110/84; PULSE 62; RESP 18; O2SAT 100
== END 2023-04-19 08:56 | disposition home or self-care (01) ==
PROVIDERS: PCP Family Medicine; Visit Provider Surgery
PROC: 0DJ08ZZ Inspection of Upper Intestinal Tract, Via Natural or Artificial Opening Endoscopic (ICD-10-PCS; CPT 43235; principal; 2023-04-19 08:30)
PROC: 0DJD8ZZ Inspection of Lower Intestinal Tract, Via Natural or Artificial Opening Endoscopic (ICD-10-PCS; CPT 45378; 2023-04-19 08:30)
DX: Z12.11 Encounter for screening for malignant neoplasm of colon (principal); R10.13 Epigastric pain; R11.2 Nausea with vomiting, unspecified; K21.9 Gastro-esophageal reflux disease without esophagitis
CPT/HCPCS: 43239; 45378; 88305; J2704; J7030

== ENCOUNTER → 2025-05-21 11:00 | Outpatient (BNVA) | payer OTHER, SELFPAY | PROVIDERS: PCP Family Medicine; Visit Provider Family Medicine | DX: E55.9 Vitamin D deficiency, unspecified (principal); Z91.018 Allergy to other foods; R11.14 Bilious vomiting; R63.4 Abnormal weight loss; R59.1 Generalized enlarged lymph nodes; R79.89 Other specified abnormal findings of blood chemistry | CPT/HCPCS: 80053; 80061; 82306; 82607; 84443; 85025; 86003; 86008 ==